=== PATIENT | female | born 1955 | race Two or more races ===

== ENCOUNTER 2023-11-17 08:30 | Inpatient (IN) | payer OTHER ==
[~2023-11-17] VITALS: Ht 154.9 cm; Wt 61.2 kg
[2023-11-17 09:18] LABS: HEMATOCRIT 39.4 % (36.0-45.00); MEAN CELL VOLUME 86.6 fL (80.00-100.00); MEAN CORPUSCULAR HEMOGLOBIN 28.5 pg (27.00-32.0); MEAN CORPUSCULAR HGB CONC 32.9 g/dl (32.0-36.0); PLATELET COUNT 305 K/uL (150-450); RED BLOOD COUNT 4.55 M/uL (4.00-6.00); RED CELL DISTRIBUTION WIDTH 14.2 % (11.5-14.5)
[2023-11-17 09:29] LABS: PH,URINE 6.5 (5.0-8.0); URINE APPEARANCE Cloudy; URINE BILIRRUBIN Negative (NEGATIVE); URINE BLOOD Negative; URINE COLOR Yellow; URINE GLUCOSE Negative (NEGATIVE); URINE KETONE Trace (NEGATIVE); URINE LEUKOCYTE Trace; URINE NITRATE Negative; URINE PROTEIN Negative (NEGATIVE)
[2023-11-17 09:32] LABS: URINE EPITHELIAL CELLS 97.3 uL (0.0-38.8); URINE RBC 5.1 uL (0.0-20.8); URINE WBC 74.3 uL (0.0-23.2)
[2023-11-17] MEDS ORDERED: ZEGERID 40 MG1 EACH PO (09:41)
[2023-11-17] MEDS ORDERED: LEVOTHYROXINE25 MCG PO (09:41)
[2023-11-17] MEDS ORDERED: TOPROL XL50 M1 PO (09:41)
[2023-11-17] MEDS ORDERED: ATACAND32 MG PO (09:41)
[2023-11-17 09:42] VITALS: BP 160/90
[2023-11-17 10:04] LABS: PROTHROMBIN TIME 10.9 SECONDS (9.0-11.5)
[2023-11-17 10:11] LABS: ALBUMIN 3.8 gm/dL (3.4-5.0); BILIRUBIN TOTAL 0.36 mg/dL (0.3-1.2); CALCIUM 11.8 mg/dL (8.5-10.1); CREATININE SERUM 0.77 mg/dL (0.55-1.02); GLOBULINA 3.6 G/DL (2.4-3.5); POTASSIUM 4.51 mEq/L (3.5-5.1); TOTAL PROTEIN 7.4 gm/dL (6.4-8.2)
[2023-11-17 10:40] LABS: URINE CRYSTALS FEW /HPF
[2023-11-23] MEDS ORDERED: CEFAZOLIN SODIUM 1,000 MG VIAL ONE ×2 (07:01→12:58)
[2023-11-23] MEDS ORDERED: SUGAMMADEX SODIUM 200 MG/2 ML VIAL IV ONE (11:19)
[2023-11-23] MEDS ORDERED: ONDANSETRON HCL 2 MG/ML VIAL ONE (12:44)
[2023-11-23] MEDS ORDERED: MORPHINE SULFATE 4 MG/ML VIAL IV ONE ×2 (12:50→13:20)
[2023-11-23] MEDS ORDERED: ENOXAPARIN SODIUM 40 MG/0.4 ML SYRINGE SUBCUTANEO ONE (12:57)
[2023-11-23] MEDS ORDERED: FAMOTIDINE/PF 20 MG/2 ML VIAL ONE (12:58)
[2023-11-23] MEDS ORDERED: MORPHINE SULFATE 4 MG/ML CARTRIDGE IV SCH (13:00)
[2023-11-23] MEDS ORDERED: FAMOTIDINE/PF 20 MG/2 ML VIAL IV NR (13:00)
[2023-11-23] MEDS ORDERED: ENOXAPARIN SODIUM 40 MG/0.4 ML SYRINGE SUBCUTANEO NR (13:00)
[2023-11-23] MEDS ORDERED: CEFAZOLIN SODIUM 1,000 MG VIAL IV SCH (14:00)
[2023-11-23 14:40] VITALS: BP 134/88; BP 182/87; O2SAT 97
[2023-11-23] MEDS ORDERED: KETOROLAC TROMETHAMINE 30 MG VIAL IM PRN (17:15)
[2023-11-23] MEDS ORDERED: FAMOTIDINE/PF 20 MG/2 ML VIAL IV SCH (21:00)
[2023-11-24 00:35] VITALS: BP 137/77; O2SAT 100
[2023-11-24] MEDS ORDERED: LEVOTHYROXINE SODIUM 25 MCG TABLET PO SCH (06:00)
[2023-11-24 08:07] VITALS: BP 153/81; O2SAT 96
[2023-11-24] MEDS ORDERED: METOPROLOL SUCCINATE 50 MG TAB.SR.24H PO SCH (09:00)
[2023-11-24] MEDS ORDERED: ENOXAPARIN SODIUM 40 MG/0.4 ML SYRINGE SUBCUTANEO SCH (09:00)
[2023-11-24] MEDS ORDERED: CANDESARTAN CILEXETIL 32 MG TABLET PO SCH (09:00)
== END 2023-11-24 12:30 | disposition home or self-care (01) | DRG 328 ==
LOC: O/R 11-23 05:12 → SURG 11-23 07:00
PROVIDERS: ADMIT Surgery; ATTEND Surgery
PROC: 8E0W4CZ Robotic Assisted Procedure of Trunk Region, Percutaneous Endoscopic Approach (ICD-10-PCS; 2023-11-23)
PROC: 0BUT4JZ Supplement Diaphragm with Synthetic Substitute, Percutaneous Endoscopic Approach (ICD-10-PCS; principal; 2023-11-23 07:00)
DX: K44.9 Diaphragmatic hernia without obstruction or gangrene (principal); Z20.822 Contact with and (suspected) exposure to COVID-19
CPT/HCPCS: 43282; S2900

== ENCOUNTER 2023-12-06 08:32 | Emergency (ER) | payer OTHER ==
[~2023-12-06] VITALS: Ht 154.9 cm; Wt 58.5 kg
[~2023-12-06 08:32] MED LIST: ATACAND32 MG PO; LEVOTHYROXINE25 MCG PO; TOPROL XL50 M1 PO; ZEGERID 40 MG1 EACH PO
[2023-12-06] MEDS ORDERED: BENZONATATE200 M1 PO (09:08)
[2023-12-06] MEDS ORDERED: PEPCID AC20 MG PO (09:08)
[2023-12-06] MEDS ORDERED: METHYLPREDNISOLONE SOD SUCC 40 MG VIAL IM ONE (09:15)
[2023-12-06] MEDS ORDERED: CEFTRIAXONE SODIUM 1,000 MG VIAL IM ONE (09:15)
[2023-12-06] MEDS ORDERED: KETOROLAC TROMETHAMINE 60 MG VIAL IM ONE (09:15)
== END 2023-12-06 09:13 | disposition home or self-care (01) ==
LOC: ER 08:34
DX: R53.81 Other malaise (principal); R07.0 Pain in throat
CPT/HCPCS: 96372; 99282; J0696; J1885; J3490